=== PATIENT | male | born 1940 | race Caucasian/White ===

== ENCOUNTER → 2016-07-13 | Day surgery (SDC) | payer MEDICARE, OTHER ==
[~2016-07-13] MED LIST: Bupivacaine 0.25% 30 ML SDV INJECT ONE; methylPREDNISolone Acetate 80 MG/ML SDV IARTIC ONE
--- NOTE | 2016-07-14 09:31 | ANES ---
DATE OF PROCEDURE: 07/13/2016 REFERRING PHYSICIAN: Reginald Serna MD PROCEDURE PERFORMED: Epidural steroid injection at L2, L3 without fluoroscopy. Did discuss this with Dr. Serna this morning and decided not to use fluoroscopy since the machine was not working and the patient needed to get this done so he could get back on his Coumadin. REFERRAL DIAGNOSES: Left L2, L3 disk nerve root impingement. 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 No significant lumbar spinal canal narrowing. MRI was also discussed with the patient. I showed him a skeleton of a spine and the defects that he would have according to the MRI. BACK PAIN HISTORY: This is a 75-year-old male, who is of average build, 210 pounds, 5 feet, 11 inches. He is alert and oriented. He does not seem anxious or in acute pain this morning. He has had back pain for 60 years; the last year it has been progressing. He presently takes hydrocodone twice at night and 1 to 2 times during the day. He has been doing this for over a year. He has had no Aleve for 4 to 5 days. Today, he rates his pain scale at 4 when sitting, 6 to 7 when walking. Skin condition is clear. The patient has also been seeing a chiropractor for many years, has not seen one in 3 months. Chiropractor does help his pain. He has tried physical therapy, he has not tried that for over a year. He does not feel like the therapy helps. He does have hypertension, atrial fibrillation, history of aortic aneurysm repair, hypothyroidism and increase lipids. He has been bridging for the last week with Lovenox and he has been off his Coumadin. His INR yesterday was 1.2. His lungs are clear today. Heart rate is 70. Blood pressure is 118/62. The patient also reports that he has slight strokes for the last 8 to 10 years. He has not had one since last year. He says his left arm and leg will get numb for about 20 to 30 minutes at a time and then it resolves on its own. He said Kareem Grewal is aware of this condition. GENERAL ASSESSMENT: When observing the patient's gait today, the patient walked normal. He does say he favors his left side occasionally. He did use a cane approximately one and a half years ago, has not used one since and this was for a short period of time. When observing his posture, he was midline from head to trochanter. Lateral view was within normal limits. When I had the patient doing a standing trunk range of motion, side bending, rotation, flexion and extension were all normal. The patient was able to walk on his toes without pain. He was able to walk on his heels with slight pain in his back. He was able to walk on his heels with inversion with slight pain on his left side. When examining him in the sitting position, and I had the patient dorsiflex and invert while I forced into his plantar flexion and eversion, he was somewhat weak on the left 4/5, and he was normal on the right. When I held up his great toe and I had him dorsiflex his foot, he had some weakness on the left side, none on the right, 4/5 on the left. When I opposed dorsiflexion of the great toe, he had some weakness on the left, none on the right, 4/5 on the left. In a sitting position, I had the patient raise his thigh off the table, knee to ceiling, he was 4/5 on the left, 5/5 on the right without pain. When I placed one hand above his knee and provided some resistance to hand placed on the lower leg, as the patient raised his lower leg, he was 4/5 on the left and 5/5 on the right without pain. When I had the patient plantar flex and kamla against resistance, he was 4/5 on the left, 5/5 on the right without pain. In a supine position, I had him do the straight leg test, he was negative bilaterally. Contralateral straight leg raise was negative bilaterally. Rakan's test was positive on the right side, negative on the left side. Pelvic compression test was negative. In a lateral position, I had patient on his side and abduct while I had resistance on his leg, he was 4/5 on the left and 5/5 on the right. Prone position testing, when I had the patient prone, I had him bend his knee and then extend and lift his leg, while I had some resistance on it, he was 3/5 on the left with some pain, and is 5/5 on the right. Reverse straight leg test, he was having some pain on the left side. INFORMED CONSENT: I did go over risks and benefits of the procedure including anything from , paralysis, infection, bleeding, more commonly I told him he had a 2% to 3% risk of getting a headache that could last over a week. He read over the risks of the procedure and he did sign consent for an epidural steroid injection. DESCRIPTION OF PROCEDURE: The patient was brought back to the procedure room. A time-out was performed. We had the patient in a sitting position. I used Betadine prep x3. Sterile drape was applied. Xylocaine 1%, 5 mL was injected at L2, L3 interspace. A #17 gauge Tuohy was advanced to approximately 7 cm where there was a good loss of resistance. The needle was bevelled to the left. Depo-Medrol 80 mg with Marcaine 0.25% preservative-free 6 mL was injected after negative aspiration. Needle was withdrawn. No paraesthesia, no CSF noted, no blood noted in the needle. POST PROCEDURE CONDITION/RESULTS: The patient was then able to stand and walk to his room. The patient said his pain level was 0. DISCHARGE INSTRUCTIONS: After in his room, a pain dairy form was given to him explaining to keep track of his pain for the next days and weeks and month and to see if this continues to help him. He was advised he could have up to 4 injections per year at an interval of every 3 months if needed. I also discussed if needed more pain relief, if the SI joint will get worse, he could always have that injected at a facility nearby. I also mentioned that with the impingement of that nerve on the left side at L2, L3 that he might need to consult at some point with a neurosurgeon and he would have to talk to Dr. Serna about that. He is encouraged to call with any concerns of increase back pain, infection, or bleeding; he is to call the hospital and get a hold of us. The patient left in satisfactory condition. /[id number] /SOHAIL CHATTERJEE
== END ==
LOC: FB.SDS 07:51
PROVIDERS: ATTEND Nurse Anesthetist, Certified Registered
DX: M51.36 Other intervertebral disc degeneration, lumbar region (principal); I10 Essential (primary) hypertension; E03.9 Hypothyroidism, unspecified; E78.5 Hyperlipidemia, unspecified; Z88.0 Allergy status to penicillin; Z88.1 Allergy status to other antibiotic agents
CPT/HCPCS: 62322; J1040; 62311-QZ; J3490

== ENCOUNTER 2017-02-26 18:47 | Emergency (ER) | payer MEDICARE, OTHER ==
[2017-02-26] MEDS ORDERED: hydrOXYzine HCl 25 MG Tab PO ONE (20:37)
[2017-02-26] MEDS ORDERED: Clindamycin HCl 150 MG Cap PO ONE (20:37)
[2017-02-26 21:33] VITALS: BP 125/84
--- NOTE | 2017-03-06 10:39 | ER ---
DATE SEEN: 02/26/2017 TIME SEEN: The patient was seen at 1907 hours. HISTORY OF PRESENT ILLNESS: This is a 76-year-old man was bit by a wasp yesterday in his left forearm. The swelling in his hand increased since then. He has some mild pain and moderate itching. No shortness of breath. No difficulty breathing. No swelling in his throat. No abdominal pain, lightheadedness, dizziness, or diaphoresis. No chest pain or irregular heartbeat. PAST MEDICAL HISTORY: Endovascular stent placed in the aorta secondary to aortic aneurysm, hypertension, chronic atrial fibrillation, anticoagulation for atrial fibrillation, anteroseptal infarct. He had ablation x2 with TIAs- multiple TIAs, has had shoulder fracture, myocardial infarction, atrial fibrillation, type 2 diabetes and on metformin, and chronic tobacco use. ALLERGIES: He is allergic to NSAIDs, aspirin, Cipro, levofloxacin, penicillin. MEDICATIONS: 1. Digoxin. 2. Clobetasol. 3. Albuterol. 4. Hydrocodone. 5. Finasteride - for prostatism - bladder spasm. 6. Multivitamins. 7. Metoprolol succinate XL 50 mg daily. 8. Meclizine q.8 hours p.r.n. 12.5 mg. 9. Lisinopril/hydrochlorothiazide. 10.Levothyroxine 137 mcg daily. 11.Warfarin 5 mg Monday, Monday, Monday, , and Monday; 5 days different doses. 12.Triamcinolone. 13.Tamsulosin 0.4 at bedtime. 14.Omeprazole 25 mg daily. 15.Nitroglycerin p.r.n. 16.Warfarin 7.5 mg Monday and Monday. 17.Atorvastatin 40 mg daily. 18.Prednisone p.r.n. 19.Metformin 1000 mg b.i.d. 20.Requip, (ropinirole) 0.25 mg t.i.d. (restless legs). REVIEW OF SYSTEMS: The patient denies chest pain, shortness of breath, lightheadedness, difficulty breathing, irregular heartbeat. PHYSICAL EXAMINATION: VITAL SIGNS: Blood pressure not taken; heart rate 86, regular; respirations are not obtained; temperature 36.6 degrees centigrade. GENERAL: Alert man, looks somewhat tired, is overweight. He is not short of breath. HEENT: No jugular venous distention. Pharynx is without erythema. No angioedema. No erythema of the throat. NECK: Supple. No bruits in neck. LUNGS: Clear to auscultation without rales, rhonchi, or wheezes. HEART: S1, S2. No murmur. However, there is occasional irregular heartbeat. CABG noted and sternal incision noted. ABDOMEN: Nontender, no guarding, no abdominal discomfort. EXTREMITIES/SKIN: Left upper extremity from antecubital fossa to the mid distal forearm on the volar surface, mild erythema, mild increase in swelling. No edema. No excoriations. DIAGNOSIS: Post insect bite infection from the hymenoptera venom hyaluronidase enzymatic release of intracellular cytosol that is causing inflammation with capillary dilation, redness of the forearm, edema, and lymphedema. PLAN: Treat for potential infection. He is allergic to penicillin. Counseled to use clindamycin 300 mg t.i.d. for 7 days and also antihistamines coupled with Atarax 25 mg t.i.d. and Benadryl 25 to 50 mg q.i.d. p.r.n. if not resolved. The patient is dismissed. To follow up with doctor in a week or earlier if he is worse. /[id number] RISSA/SOHAIL CHATTERJEE
== END 2017-02-26 20:43 | disposition home or self-care (01) ==
LOC: FB.ED 18:47
DX: T63.481A Toxic effect of venom of other arthropod, accidental (unintentional), initial encounter (principal); L08.9 Local infection of the skin and subcutaneous tissue, unspecified; Z79.899 Other long term (current) drug therapy
CPT/HCPCS: 99281; A9270; 99283

== ENCOUNTER 2018-06-12 04:52 | Emergency (ER) | payer MEDICARE, OTHER ==
--- NOTE | 2018-06-12 05:14 | EDM.PDOC ---
ED HPI GENERAL MEDICAL PROBLEM - General Stated Complaint: WEAKNESS,CONFUSE Time Seen by Provider: 06/12/18 04:52 Source of Information: Reports: Patient, Family History Limitations: Reports: Altered Mental Status - History of Present Illness INITIAL COMMENTS - FREE TEXT/NARRATIVE: 77 y.o.w.m smoker with multiple medical problems including H/O CVAs, CAD and Colon CA came to the ed with his due to short memory loss and weakness which started 4 days ago. Pt is on Coumadin. Pt denies CP, Has left sided weakness to CVAs and Right shoulder pain from previous injuries. No N/V/D no diaphoresis or any other acute medical issues. BP 134/42 RR 20 Pulse ox 94 % on RA Temp 37.3 Pulse 56 Onset Date: 06/09/18 Onset Time: 08:00 Duration: Day(s):, Getting Worse Location: Reports: Head, Generalized Severity: Moderate Improves with: Reports: Rest Worsens with: Reports: Movement Context: Reports: Other (H/O CVAs) Associated Symptoms: Reports: Confusion, Cough, Diaphoresis, Headaches, Malaise , Weakness right shoulder Pain Score (Numeric/FACES): 4 - Related Data Allergies Allergy/AdvReac Type Severity Reaction Status Date / Time ciprofloxacin Allergy nausea,vomi Verified 06/12/18 05:23 ting levofloxacin Allergy unknown Verified 06/12/18 05:23 Penicillins Allergy Rash Verified 06/12/18 05:23 Home Meds: Home Meds Warfarin [Coumadin] 5 mg PO MO 03/10/13 [History] Warfarin [Coumadin] 7.5 mg PO SUTUWETHFRSA 03/10/13 [History] Hydrocodone/Acetaminophen [Hydrocodon-Acetaminoph 7.5-325] 0.5 tab PO Q4H [History] Levothyroxine [Levothroid] 137 mcg PO ACBREAKFAST 04/01/15 [History] Meclizine HCl 12.5 - 25 mg PO Q8H PRN 04/01/15 [History] Multivitamin [Multivitamins] 1 each PO DAILY 04/01/15 [History] Nitroglycerin [Nitrostat] 0.4 mg SL ASDIRECTED PRN 04/01/15 [History] Omeprazole 20 mg PO DAILY 04/01/15 [History] Tamsulosin [Flomax] 0.4 mg PO BID 04/01/15 [History] Triamcinolone Acetonide [Triamcinolone Acetonide 0.1% Crm] 1 applic TOP BID PRN 04/01/15 [History] Albuterol [Proventil HFA] 2 puff PO Q4H PRN 07/12/16 [History] Finasteride [Proscar] 5 mg PO BEDTIME 07/12/16 [History] Lisinopril/Hydrochlorothiazide [Lisinopril-Hctz 10-12.5 mg Tab] 1 tab PO DAILY 07/12/16 [History] Metoprolol Succinate [Toprol XL] 100 mg PO DAILY 07/12/16 [History] atorvaSTATin [Lipitor] 40 mg PO BEDTIME 07/12/16 [History] metFORMIN [Glucophage] 1,000 mg PO BIDMEALS 07/12/16 [History] rOPINIRole HCl [Requip] 0.25 mg PO TID PRN 07/12/16 [History] Digoxin 0.25 mg PO DAILY 04/08/18 [History] Gabapentin [Neurontin] 600 mg PO TID 04/08/18 [History] Glimepiride [Amaryl] 2 mg PO DAILY 04/08/18 [History] Ibuprofen [Advil Migraine] 400 mg PO ASDIRECTED PRN 06/12/18 [History] Nitrofurantoin Monohyd/M-Cryst [Macrobid 100 mg Capsule] 100 mg PO BID 06/12/18 [History] Past Medical History - Past Health History Medical/Surgical History: Denies Medical/Surgical History Cardiovascular History: Reports: Afib, CAD, Hypertension, Stents Gastrointestinal History: Reports: Other (See Below) Other Gastrointestinal History: Colon CA Genitourinary History: Reports: Prostate Disorder Musculoskeletal History: Reports: Arthritis, Fracture, Neck Pain, Chronic Other Musculoskeletal History: SHOULDER FRACTURE Neurological History: Reports: Concussion, CVA, Migraines, Neuropathy, Diabetic , Vertigo Other Neuro History: 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, restless legs, Psychiatric History: Reports: Anxiety Endocrine/Metabolic History: Reports: Diabetes, Type II, Hypothyroidism, Obesity /BMI 30+ Hematologic History: Reports: Blood Transfusion(s) Oncologic (Cancer) History: Reports: Colon Dermatologic History: Reports: Other (See Below) Other Dermatologic History: hx rash - Infectious Disease History Infectious Disease History: Reports: Chicken Pox, Measles, Mumps, Pertussis ( Whooping Cough), Rheumatic Fever, Other (See Below) Other Infectious Disease History: yellow jaundice - Past Surgical History Head Surgeries/Procedures: Reports: None Cardiovascular Surgical History: Reports: Carotid Stents Other Cardiovascular Surgeries/Procedures: 2 stents placed GI Surgical History: Reports: Appendectomy, Colonoscopy, Hernia Repair/Other Male Surgical History: Reports: Cystectomy Neurological Surgical History: Reports: None Musculoskeletal Surgical History: Reports: Shoulder Surgery Other Musculoskeletal Surgeries/Procedures:: R shoulder x2 Oncologic Surgical History: Reports: None, Other (See Below) Other Oncologic Surgeries/Procedures: polups removed Dermatological Surgical History: Reports: None Social & Family History - Family History Family Medical History: Noncontributory - Caffeine Use Caffeine Use: Reports: Coffee ED ROS GENERAL - Review of Systems Review Of Systems: Unable To Obtain ED EXAM, NEURO - Physical Exam Exam: See Below Exam Limited By: Physical Impairment General Appearance: Alert, Mild Distress, Moderate Distress, Obese Eye Exam: Bilateral Eye: Normal Inspection Ears: Normal External Exam Nose: Other (dry mucosal membrane) Throat/Mouth: Normal Lips, Normal Voice, No Airway Compromise, Other (dry mucosal membrane, poor dentition) Head Exam: Atraumatic, Normocephalic Neck: Normal Inspection, Supple, Non-Tender, Full Range of Motion Respiratory/Chest: No Respiratory Distress, Normal Breath Sounds (poor insp effort) Cardiovascular: Normal Peripheral Pulses, Regular Rate, Rhythm, No Edema GI/Abdominal: Normal Bowel Sounds, Soft, Non-Tender, No Organomegaly, No Abnormal Bruit, No Mass, Pelvis Stable (Male) Exam: Deferred Rectal (Males) Exam: Deferred Neurological: Alert, Normal Mood/Affect, CN II-XII Intact, Abnormal Gait DTR: 2+: Bicep (L) Back Exam: Normal Inspection, Full Range of Motion Extremities: Normal Inspection, Normal Range of Motion, Non-Tender, Normal Capillary Refill Psychiatric: Normal Affect, Normal Mood Skin Exam: Warm, Dry, Intact, Normal Color, No Rash EKG INTERPRETATION EKG Date: 06/12/18 Time: 05:00 Rhythm: A-Fib Rate (Beats/Min): 59 [place]: Normal P-Wave: Absent QRS: Normal ST-T: Normal QT: Normal Comparison: NA - No Prior EKG Course - Vital Signs Text/Narrative:: 77 y.o.w.m smoker with multiple medical problems including H/O CVAs, CAD and Colon CA came to the ed with his due to short memory loss and weakness which started 4 days ago. Pt is on Coumadin. Pt denies CP, Has left sided weakness to CVAs and Right shoulder pain from previous injuries. No N/V/D no diaphoresis or any other acute medical issues. BP 134/42 RR 20 Pulse ox 94 % on RA Temp 37.3 Pulse 56 PE: Weak appearing 77 y.o.w.m with short memory loss, which started 4 days ago, weakness, a fib with SVR and a run of V Tach while here in the ED Imaging: CXR: right hilum enlarged, official report is pending. CT head: Results are pending Labs: Troponin 0.122 Mg 1.4 BNP 5809 GFR 39 Cr 1.7 BUN 21 K 4.6 Na 135 Lactic acid 1.3 INR 2.25 (on Coumadin) Impression: NSTEMI, A -fib wit SVR, Run of VT (2 sec), Low MG, Colon CA, CAD with stent placements, CVAs x 6, H/O Vertigo, Typ 2 diabetes, Tx: ASA, Mg, NS, Heparin drip 6.20 am Consultation:Dr. Banuelos, Hospitalist, [facility]: Accepted the pt for transfer, admission and further care. No procainamide at this time. Reexam: Improved Plan: Transfer to [facility] by EMS, was kept informed and agreed with transfer. Pt was signed out to Dr. Dennison at 7.30 am due to shift change. Last Recorded V/S: Last Vital Signs Temp 37.3 C 06/12/18 04:55 Pulse 51 L 06/12/18 06:43 Resp 18 06/12/18 06:43 BP 147/59 H 06/12/18 06:43 Pulse Ox 99 06/12/18 06:43 - Orders/Labs/Meds Labs: Laboratory Tests 06/12/18 06/12/18 06/12/18 Range/Units 05:05 05:05 05:05 WBC 7.7 (4.5-12.0) X10-3/uL RBC 3.69 L (4.30-5.75) x10(6)uL Hgb 11.7 (11.5-15.5) g/dL Hct 34.9 (30.0-51.3) % MCV 94.5 (80-96) fL MCH 31.6 (27.7-33.6) pg MCHC 33.5 (32.2-35.4) g/dL RDW 13.6 (11.5-15.5) % Plt Count 131 (125-369) X10(3)uL MPV 9.5 (7.4-10.4) fL Add Manual Diff Yes Neutrophils % (Manual) 57 (46-82) % Lymphocytes % (Manual) 33 (13-37) % Monocytes % (Manual) 8 (4-12) % Eosinophils % (Manual) 2 (0-5) % PT 24.2 H (8.7-11.1) INR 2.51 H (0.89-1.13) Sodium 135 (135-145) mmol/L Potassium 4.3 (3.5-5.3) mmol/L Chloride 101 (100-110) mmol/L Carbon Dioxide 26 (21-32) mmol/L BUN 21 H (7-18) mg/dL Creatinine 1.7 H (0.70-1.30) mg/dL Est Cr Clr Drug Dosing TNP Estimated GFR (MDRD) 39 L (>60) BUN/Creatinine Ratio 12.4 (9-20) Glucose 81 (80-116) mg/dL Lactic Acid (0.4-2.2) mmol/L Calcium 8.7 (8.6-10.2) mg/dL Magnesium (1.8-2.5) mg/dL Troponin I (<0.017-0.056) ng/mL NT-Pro-B Natriuret Pep (<=450) pg/mL Urine Color (YELLOW) Urine Appearance (CLEAR) Urine pH (5.0-6.5) Ur Specific Gustine (1.010-1.025) Urine Protein (NEGATIVE) mg/dL Urine Glucose (UA) (NEGATIVE) mg/dL Urine Ketones (NEGATIVE) mg/dL Urine Occult Blood (NEGATIVE) Urine Nitrite (NEGATIVE) Urine Bilirubin (NEGATIVE) Urine Urobilinogen (NEGATIVE) mg/dL Ur Leukocyte Esterase (NEGATIVE) Urine WBC (0) Ur Squamous Epith Cells (NS,R,O) Urine Bacteria (NS) 06/12/18 06/12/18 06/12/18 Range/Units 05:05 05:05 05:05 WBC (4.5-12.0) X10-3/uL RBC (4.30-5.75) x10(6)uL Hgb (11.5-15.5) g/dL Hct (30.0-51.3) % MCV (80-96) fL MCH (27.7-33.6) pg MCHC (32.2-35.4) g/dL RDW (11.5-15.5) % Plt Count (125-369) X10(3)uL MPV (7.4-10.4) fL Add Manual Diff Neutrophils % (Manual) (46-82) % Lymphocytes % (Manual) (13-37) % Monocytes % (Manual) (4-12) % Eosinophils % (Manual) (0-5) % PT (8.7-11.1) INR (0.89-1.13) Sodium (135-145) mmol/L Potassium (3.5-5.3) mmol/L Chloride (100-110) mmol/L Carbon Dioxide (21-32) mmol/L BUN (7-18) mg/dL Creatinine (0.70-1.30) mg/dL Est Cr Clr Drug Dosing Estimated GFR (MDRD) (>60) BUN/Creatinine Ratio (9-20) Glucose (80-116) mg/dL Lactic Acid 1.3 (0.4-2.2) mmol/L Calcium (8.6-10.2) mg/dL Magnesium 1.4 L (1.8-2.5) mg/dL Troponin I 0.122 H* (<0.017-0.056) ng/mL NT-Pro-B Natriuret Pep 5808 H* (<=450) pg/mL Urine Color (YELLOW) Urine Appearance (CLEAR) Urine pH (5.0-6.5) Ur Specific Gust[place] (1.010-1.025) Urine Protein (NEGATIVE) mg/dL Urine Glucose (UA) (NEGATIVE) mg/dL Urine Ketones (NEGATIVE) mg/dL Urine Occult Blood (NEGATIVE) Urine Nitrite (NEGATIVE) Urine Bilirubin (NEGATIVE) Urine Urobilinogen (NEGATIVE) mg/dL Ur Leukocyte Esterase (NEGATIVE) Urine WBC (0) Ur Squamous Epith Cells (NS,R,O) Urine Bacteria (NS) 06/12/18 06/12/18 Range/Units 08:12 10:15 WBC (4.5-12.0) X10-3/uL RBC (4.30-5.75) x10(6)uL Hgb (11.5-15.5) g/dL Hct (30.0-51.3) % MCV (80-96) fL MCH (27.7-33.6) pg MCHC (32.2-35.4) g/dL RDW (11.5-15.5) % Plt Count (125-369) X10(3)uL MPV (7.4-10.4) fL Add Manual Diff Neutrophils % (Manual) (46-82) % Lymphocytes % (Manual) (13-37) % Monocytes % (Manual) (4-12) % Eosinophils % (Manual) (0-5) % PT (8.7-11.1) INR (0.89-1.13) Sodium (135-145) mmol/L Potassium (3.5-5.3) mmol/L Chloride (100-110) mmol/L Carbon Dioxide (21-32) mmol/L BUN (7-18) mg/dL Creatinine (0.70-1.30) mg/dL Est Cr Clr Drug Dosing Estimated GFR (MDRD) (>60) BUN/Creatinine Ratio (9-20) Glucose (80-116) mg/dL Lactic Acid (0.4-2.2) mmol/L Calcium (8.6-10.2) mg/dL Magnesium (1.8-2.5) mg/dL Troponin I 0.112 H* (<0.017-0.056) ng/mL NT-Pro-B Natriuret Pep (<=450) pg/mL Urine Color Yellow (YELLOW) Urine Appearance Clear (CLEAR) Urine pH 6.0 (5.0-6.5) Ur Specific [place] 1.015 (1.010-1.025) Urine Protein Negative (NEGATIVE) mg/dL Urine Glucose (UA) Normal (NEGATIVE) mg/dL Urine Ketones Negative (NEGATIVE) mg/dL Urine Occult Blood Negative (NEGATIVE) Urine Nitrite Negative (NEGATIVE) Urine Bilirubin Negative (NEGATIVE) Urine Urobilinogen Normal (NEGATIVE) mg/dL Ur Leukocyte Esterase Negative (NEGATIVE) Urine WBC 0-5 (0) Ur Squamous Epith Cells Occasional (NS,R,O) Urine Bacteria Few H (NS) Meds: Medications Discontinued Medications Generic Name Dose Route Start Last Admin Trade Name Freq PRN Reason Stop Dose Admin Aspirin 324 mg 06/12/18 07:39 06/12/18 07:58 Aspirin PO 06/12/18 07:40 324 mg ONETIME ONE Administration Sodium Chloride 1,000 mls @ 125 mls/hr 06/12/18 05:15 06/12/18 05:26 Normal Saline IV 125 mls/hr ASDIRECTED RYLIE Administration Magnesium Sulfate 2 gm/ Premix 50 mls @ 150 mls/hr 06/12/18 06:27 06/12/18 06 :36 IV 06/12/18 06:46 150 mls/hr ONETIME ONE Administration Heparin Sodium/Sodium Chloride 25,000 units in 500 mls @ 19.974 mls/hr 07:45 06/12/18 07:59 Heparin 25,000 Units In 1/2 Ns 500 Ml IV 10.1 units/kg/hr TITRATE RYLIE 19.974 mls/hr Administration Protocol 10.1 UNITS/KG/HR Nicotine 14 mg 06/12/18 10:42 06/12/18 11:01 Habitrol TRDERM 06/12/18 10:43 14 mg ONETIME ONE Administration Sodium Chloride 10 ml 06/12/18 07:55 06/12/18 07:56 Saline Flush FLUSH 10 ml ASDIRECTED PRN Administration Keep Vein Open Departure - Departure Time of Disposition: 20:00 Disposition: DC/Tfer to Acute Hospital 02 Condition: Fair Clinical Impression: NSTEMI (non-ST elevated myocardial infarction) - Discharge Information Referrals: PCP,Unknown [Primary Care Provider] - Forms: ED Department Discharge
[2018-06-12] MEDS ORDERED: Sodium Chloride 0.9% 1,000 ML IV SCH (05:15)
[2018-06-12] MEDS ORDERED: Magnesium Sulfate/Water 2 GM in Premix Bag 1 BAG IV ONE (06:27)
[2018-06-12 06:48] VITALS: BP 147/59
[2018-06-12] MEDS ORDERED: Aspirin 81 MG Tab.Chew PO ONE (07:39)
[2018-06-12] MEDS ORDERED: Heparin Sodium/0.45% NaCl 25,000 UNITS/500 ML BAG IV SCH (07:45)
[2018-06-12] MEDS ORDERED: Sodium Chloride 0.9% 10 ML Syringe FLUSH PRN (07:55)
[2018-06-12] MEDS ORDERED: Nicotine 14 MG/24 Hr Patch TRDERM ONE (10:42)
== END 2018-06-12 11:37 ==
LOC: FB.ED 04:52
DX: I21.4 Non-ST elevation (NSTEMI) myocardial infarction (principal); I48.91 Unspecified atrial fibrillation; C18.9 Malignant neoplasm of colon, unspecified; I25.10 Atherosclerotic heart disease of native coronary artery without angina pectoris; I10 Essential (primary) hypertension; E11.40 Type 2 diabetes mellitus with diabetic neuropathy, unspecified; E66.9 Obesity, unspecified; Z88.1 Allergy status to other antibiotic agents; Z88.0 Allergy status to penicillin; Z79.899 Other long term (current) drug therapy; Z86.73 Personal history of transient ischemic attack (TIA), and cerebral infarction without residual deficits
CPT/HCPCS: 36415; 70450; 71045; 80048; 81001; 83605; 83735; 83880; 84484; 85025; 85610; 93005; 96365; 99285; A9270-GY; J1644; J3475; J7030

== ENCOUNTER 2019-05-23 17:23 | Emergency (ER) | payer MEDICARE, OTHER ==
[2019-05-23] MEDS ORDERED: HYDROmorphone 2 MG/ML SDV IM ONE (18:01)
--- NOTE | 2019-05-23 18:07 | EDM.PDOC ---
ED HPI GENERAL MEDICAL PROBLEM - General Chief Complaint: Back Pain or Injury Stated Complaint: BACK PAIN AFTER FALLING ON ICE STEPS Time Seen by Provider: 05/23/19 17:50 Source of Information: Reports: Patient, Family, Old Records History Limitations: Reports: No Limitations - History of Present Illness INITIAL COMMENTS - FREE TEXT/NARRATIVE: Milton comes into [facility] ED this evening for examination of his lower back following a backward fall at 8 am this morning. He slipped on the ice and fell onto lower back. There was no LOC. 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 There is acute on chronic pain, nonradiating, and no change in bowel or bladder function. He has been taking Hydrocodone 7.5 mg tabs x 2 for sxs relief. He is on Coumadin for chronic AF. - Related Data Allergies Allergy/AdvReac Type Severity Reaction Status Date / Time ciprofloxacin Allergy nausea,vomi Verified 06/12/18 05:23 ting levofloxacin Allergy unknown Verified 06/12/18 05:23 Penicillins Allergy Rash Verified 06/12/18 05:23 Home Meds: Home Meds Warfarin [Coumadin] 5 mg PO MO 03/10/13 [History] Warfarin [Coumadin] 7.5 mg PO SUTUWETHFRSA 03/10/13 [History] Hydrocodone/Acetaminophen [Hydrocodon-Acetaminoph 7.5-325] 0.5 tab PO Q4H [History] Levothyroxine [Levothroid] 137 mcg PO ACBREAKFAST 04/01/15 [History] Meclizine HCl 12.5 - 25 mg PO Q8H PRN 04/01/15 [History] Multivitamin [Multivitamins] 1 each PO DAILY 04/01/15 [History] Nitroglycerin [Nitrostat] 0.4 mg SL ASDIRECTED PRN 04/01/15 [History] Omeprazole 20 mg PO DAILY 04/01/15 [History] Tamsulosin [Flomax] 0.4 mg PO BID 04/01/15 [History] Triamcinolone Acetonide [Triamcinolone Acetonide 0.1% Crm] 1 applic TOP BID PRN 04/01/15 [History] Albuterol [Proventil HFA] 2 puff PO Q4H PRN 07/12/16 [History] Finasteride [Proscar] 5 mg PO BEDTIME 07/12/16 [History] Lisinopril/Hydrochlorothiazide [Lisinopril-Hctz 10-12.5 mg Tab] 1 tab PO DAILY 07/12/16 [History] Metoprolol Succinate [Toprol XL] 100 mg PO DAILY 07/12/16 [History] atorvaSTATin [Lipitor] 40 mg PO BEDTIME 07/12/16 [History] metFORMIN [Glucophage] 1,000 mg PO BIDMEALS 07/12/16 [History] rOPINIRole HCl [Requip] 0.25 mg PO TID PRN 07/12/16 [History] Digoxin 0.25 mg PO DAILY 04/08/18 [History] Gabapentin [Neurontin] 600 mg PO TID 04/08/18 [History] Glimepiride [Amaryl] 2 mg PO DAILY 04/08/18 [History] Ibuprofen [Advil Migraine] 400 mg PO ASDIRECTED PRN 06/12/18 [History] Nitrofurantoin Monohyd/M-Cryst [Macrobid 100 mg Capsule] 100 mg PO BID 06/12/18 [History] Past Medical History - Past Health History Medical/Surgical History: Denies Medical/Surgical History Cardiovascular History: Reports: Afib, CAD, Hypertension, Stents Respiratory History: Reports: Other (See Below) Other Respiratory History: chronic smoker since 8 years old; 1 pack or less / day Gastrointestinal History: Reports: Other (See Below) Other Gastrointestinal History: Colon CA Genitourinary History: Reports: Prostate Disorder Musculoskeletal History: Reports: Arthritis, Fracture, Neck Pain, Chronic Other Musculoskeletal History: SHOULDER FRACTURE Neurological History: Reports: Concussion, CVA, Migraines, Neuropathy, Diabetic , Vertigo Other Neuro History: 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, restless legs, Psychiatric History: Reports: Anxiety Endocrine/Metabolic History: Reports: Diabetes, Type II, Hypothyroidism, Obesity /BMI 30+ Hematologic History: Reports: Blood Transfusion(s) Oncologic (Cancer) History: Reports: Colon Dermatologic History: Reports: Other (See Below) Other Dermatologic History: hx rash - Infectious Disease History Infectious Disease History: Reports: Chicken Pox, Measles, Mumps, Pertussis ( Whooping Cough), Rheumatic Fever, Other (See Below) Other Infectious Disease History: yellow jaundice - Past Surgical History Head Surgeries/Procedures: Reports: None Cardiovascular Surgical History: Reports: Carotid Stents Other Cardiovascular Surgeries/Procedures: 2 stents placed GI Surgical History: Reports: Appendectomy, Colonoscopy, Hernia Repair/Other Male Surgical History: Reports: Cystectomy Neurological Surgical History: Reports: None Musculoskeletal Surgical History: Reports: Shoulder Surgery Other Musculoskeletal Surgeries/Procedures:: R shoulder x2 Oncologic Surgical History: Reports: None, Other (See Below) Other Oncologic Surgeries/Procedures: polups removed Dermatological Surgical History: Reports: None Social & Family History - Family History Family Medical History: Noncontributory - Caffeine Use Caffeine Use: Reports: Coffee Other Caffeine Use: seldom ED ROS GENERAL - Review of Systems Review Of Systems: Comprehensive ROS is negative, except as noted in HPI. ED EXAM,LOWER BACK PAIN/INJURY - Physical Exam Exam: See Below Exam Limited By: No Limitations General Appearance: Alert, WD/WN, Anxious, Moderate Distress, Obese Head: Atraumatic, Normocephalic Neck: Normal Inspection, Supple, Non-Tender Respiratory/Chest: No Respiratory Distress, Lungs Clear, No Accessory Muscle Use , Chest Non-Tender Cardiovascular: No Murmur, Irregularly Irregular GI/Abdominal: Normal Bowel Sounds, Soft, Non-Tender, No Organomegaly, No Distention, No Mass (Male) Exam: Deferred Rectal (Males) Exam: Deferred Back Exam: Vertebral Tenderness (L4-5, L5-S1; visible ecchymoses overlying SI joints R>L) Extremities: Limited Range of Motion, Other (visible ecchymoses involving L upper arm (old)) Neurological: Alert, CN II-XII Intact Psychiatric: Normal Affect, Anxious Skin Exam: Warm, Dry, Intact, No Rash, Ecchymosis Lymphatic: No Adenopathy Course - Vital Signs Text/Narrative:: Milton reported considerable improvement in back pain after administration of Dilaudid 2 mg IM before radiographic study. Findings note disc space narrowing at L4-5, no compression fx, and numerous spurs. He was clinically improved at time of discharge. - Orders/Labs/Meds Orders: Active Orders 24 hr Category Date Time Status Lumbar Spine 2 or 3V [CR] Stat Exams 05/23/19 18:00 Taken Meds: Medications Discontinued Medications Generic Name Dose Route Start Last Admin Trade Name Freq PRN Reason Stop Dose Admin Hydromorphone HCl 2 mg 05/23/19 18:05/23/19 18:09 Dilaudid IM 05/23/19 18:02 2 mg ONETIME ONE Administration Departure - Departure Time of Disposition: 19:06 Disposition: Home, Self-Care 01 Condition: Fair Clinical Impression: Contusion of lower back Qualifiers: Encounter type: initial encounter Qualified Code(s): S30.0XXA - Contusion of lower back and pelvis, initial encounter - Discharge Information *PRESCRIPTION DRUG MONITORING PROGRAM REVIEWED*: Not Applicable *COPY OF PRESCRIPTION DRUG MONITORING REPORT IN PATIENT RONNY: Not Applicable Referrals: Rakan Prather MD [Primary Care Provider] - Forms: ED Department Discharge Sepsis Event Note - Focused Exam Date Exam was Performed: 05/23/19 Time Exam was Performed: 19:05 - Problem List & Annotations (1) Contusion of lower back SNOMED Code(s): 791910587 Code(s): S30.0XXA - CONTUSION OF LOWER BACK AND PELVIS, INITIAL ENCOUNTER Status: Acute Current Visit: Yes Annotation/Comment:: I suggested rest, ice packs, gentle stretches, and use of Hydrocodone 7.5/325 mg for breakthrough pain. Qualifiers: Encounter type: initial encounter Qualified Code(s): S30.0XXA - Contusion of lower back and pelvis, initial encounter - Problem List Review Problem List Initiated/Reviewed/Updated: Yes - My Orders Last 24 Hours: My Active Orders 05/23/19 18:00 Lumbar Spine 2 or 3V [CR] Stat - Assessment/Plan Last 24 Hours: My Active Orders 05/23/19 18:00 Lumbar Spine 2 or 3V [CR] Stat Plan: Follow up with PCP if sxs persist.
[2019-05-23 20:28] VITALS: BP 123/99; PULSE 104
== END 2019-05-23 20:00 | disposition home or self-care (01) ==
LOC: FB.ED 17:23
DX: S30.0XXA Contusion of lower back and pelvis, initial encounter (principal); I10 Essential (primary) hypertension; I48.91 Unspecified atrial fibrillation; E11.9 Type 2 diabetes mellitus without complications; E03.9 Hypothyroidism, unspecified; E66.9 Obesity, unspecified; Z79.01 Long term (current) use of anticoagulants; Z88.1 Allergy status to other antibiotic agents; W19.XXXA Unspecified fall, initial encounter
CPT/HCPCS: 72100; 96372; 99283; J1170

== ENCOUNTER 2022-02-09 16:48 | Emergency (ER) | payer MEDICARE ==
[2022-02-09 22:06] VITALS: BP 141/81; PULSE 83
== END 2022-02-09 19:16 ==
LOC: FB.ED 16:48
DX: J93.9 Pneumothorax, unspecified (principal); I11.0 Hypertensive heart disease with heart failure; I50.9 Heart failure, unspecified; I48.91 Unspecified atrial fibrillation; I25.10 Atherosclerotic heart disease of native coronary artery without angina pectoris; E11.9 Type 2 diabetes mellitus without complications; E03.9 Hypothyroidism, unspecified; E66.9 Obesity, unspecified; Z95.5 Presence of coronary angioplasty implant and graft; Z88.1 Allergy status to other antibiotic agents; Z88.0 Allergy status to penicillin; Z79.01 Long term (current) use of anticoagulants; Z79.899 Other long term (current) drug therapy; Z79.84 Long term (current) use of oral hypoglycemic drugs; Z68.32 Body mass index [BMI] 32.0-32.9, adult
CPT/HCPCS: 36415; 71046; 83880; 84484; 85379; 85610; 85730; 99285

== ENCOUNTER 2022-08-16 08:14 | Day surgery (SDC) | payer MEDICARE ==
[~2022-08-16 08:14] MED LIST changes: -Bupivacaine 0.25% 30 ML SDV INJECT ONE; +Lactated Ringers 1,000 ML IV SCH; +Sodium Chloride 0.9% 10 ML Syringe FLUSH PRN; -methylPREDNISolone Acetate 80 MG/ML SDV IARTIC ONE
[2022-08-16] MEDS ORDERED: Midazolam 1 MG/ML 2 ML SDV IV ONE (08:15)
[2022-08-16] MEDS ORDERED: fentaNYL 100 MCG/2 ML SDV IV ONE (08:15)
[2022-08-16] MEDS ORDERED: Sodium Chloride 0.9% 10 ML Syringe FLUSH PRN (10:00)
[2022-08-16] MEDS ORDERED: Lactated Ringers 1,000 ML IV SCH (10:00)
[2022-08-16] MEDS ORDERED: acetaZOLAMIDE 500 MG Cap.ER PO ONE (10:00)
[2022-08-16 11:05] VITALS: BP 108/59; PULSE 68
== END 2022-08-16 11:15 | disposition home or self-care (01) ==
LOC: FB.SDS 08:14
PROVIDERS: ATTEND Ophthalmology
DX: E11.36 Type 2 diabetes mellitus with diabetic cataract (principal); H25.813 Combined forms of age-related cataract, bilateral; H35.3131 Nonexudative age-related macular degeneration, bilateral, early dry stage; H25.13 Age-related nuclear cataract, bilateral; H16.103 Unspecified superficial keratitis, bilateral; H18.413 Arcus senilis, bilateral; I12.9 Hypertensive chronic kidney disease with stage 1 through stage 4 chronic kidney disease, or unspecified chronic kidney disease; N18.31 Chronic kidney disease, stage 3a; E11.41 Type 2 diabetes mellitus with diabetic mononeuropathy; E11.22 Type 2 diabetes mellitus with diabetic chronic kidney disease; E11.69 Type 2 diabetes mellitus with other specified complication; E11.42 Type 2 diabetes mellitus with diabetic polyneuropathy; N40.1 Benign prostatic hyperplasia with lower urinary tract symptoms; R35.0 Frequency of micturition; D63.1 Anemia in chronic kidney disease; E03.9 Hypothyroidism, unspecified; N17.9 Acute kidney failure, unspecified; J44.9 Chronic obstructive pulmonary disease, unspecified; E78.5 Hyperlipidemia, unspecified; I73.9 Peripheral vascular disease, unspecified; E66.9 Obesity, unspecified; I25.2 Old myocardial infarction; F17.210 Nicotine dependence, cigarettes, uncomplicated; Z68.30 Body mass index [BMI] 30.0-30.9, adult; Z79.899 Other long term (current) drug therapy; Z79.01 Long term (current) use of anticoagulants; Z79.84 Long term (current) use of oral hypoglycemic drugs; Z88.0 Allergy status to penicillin; Z88.2 Allergy status to sulfonamides; Z88.1 Allergy status to other antibiotic agents; Z88.8 Allergy status to other drugs, medicaments and biological substances; Z79.890 Hormone replacement therapy; Z98.890 Other specified postprocedural states
CPT/HCPCS: 00142; 66984; 82947; A9270; J2250; J3010; J7120; V2632

== ENCOUNTER 2023-06-13 14:09 | Emergency (ER) | payer MEDICARE ==
[2023-06-13 14:32] VITALS: BP 106/73; PULSE 72
[2023-06-13 14:50] LABS: BASOPHILS PERCENT AUTO 0.6 % (0.3-3.8); EOSINOPHILS ABSOLUTE AUTO 0.4 x10-3/uL (0.0-0.6); EOSINOPHILS PERCENT AUTO 5.9 % (0.1-6.8); HEMATOCRIT 33.1 % (38.3-50.1); HEMOGLOBIN 10.9 g/dL (12.9-17.7); LYMPHOCYTES ABSOLUTE AUTO 1.9 x10-3/uL (0.5-4.5); LYMPHOCYTES PERCENT AUTO 27.3 % (15.8-45.3); MEAN CORPUSCULAR HEMOGLOBIN 31.1 pg (27.0-33.3); MEAN CORPUSCULAR HGB CONC 32.9 g/dL (28.7-35.3); MEAN CORPUSCULAR VOLUME 94.4 fL (80.8-98.7); MEAN PLATELET VOLUME 9.4 fL (6.7-11.0); MONOCYTES ABSOLUTE AUTO 0.7 x10-3/uL (0.0-1.2); MONOCYTES PERCENT AUTO 10.1 % (5.5-15.2); NEUTROPHILS ABSOLUTE AUTO 3.8 x10-3/uL (1.7-6.9); NEUTROPHILS PERCENT AUTO 56.1 % (40.3-71.8); PLATELET COUNT,PLT 170 x10(3)uL (117-477); RED CELL DISTRIBUTION WIDTH 14.6 % (12.4-15.0); WHITE BLOOD CELL COUNT,WBC 6.8 x10-3/uL (3.2-10.1)
[2023-06-13 14:56] LABS: INR 3.12 (1.00-1.24); PROTHROMBIN TIME 29.5 sec (9.0-11.1)
[2023-06-13 14:59] LABS: A/G RATIO 0.8; ALANINE AMINOTRANSFERASE,ALT 34 U/L (12-36); ALBUMIN 3.5 g/dL (3.2-4.6); ALKALINE PHOSPHATASE 122 IU/L (56-112); ASPARTATE AMNIOTRANSFERASE,AST 33 IU/L (5-25); BILIRUBIN TOTAL 0.3 mg/dL (0.1-1.3); BLOOD UREA NITROGEN,BUN 71 mg/dL (7-18); BUN/CREATININE RATIO 13.1 (9-20); CALCIUM 10.6 mg/dL (8.6-10.2); CARBON DIOXIDE,CO2 25 mmol/L (21-32); CHLORIDE,CL 104 mmol/L (100-110); EST CRCL DRUG DOSING (CG) 11.04 mL/min; ESTIMATED GFR 10 mL/min (>60); GLUCOSE RANDOM 95 mg/dL (80-116); POTASSIUM,K 5.6 mmol/L (3.5-5.3); PROTEIN TOTAL,TP 7.9 g/dL (6.0-8.0); SODIUM,NA 136 mmol/L (135-145)
[2023-06-13 15:10] LABS: CREATININE 5.4 mg/dL (0.70-1.30)
[2023-06-13 15:22] LABS: INFLUENZA A NAA NEGATIVE (NEGATIVE); INFLUENZA B NAA NEGATIVE (NEGATIVE)
[2023-06-13 15:25] LABS: CORONAVIRUS COVID-19 NAA NEGATIVE (NEGATIVE)
[2023-06-13] MEDS ORDERED: Sodium Chloride 0.9% 1,000 ML IV SCH (16:00)
[2023-06-13 16:54] LABS: BILIRUBIN,URINE NEGATIVE (NEGATIVE); GLUCOSE,URINE NORMAL (NORMAL); KETONES,URINE NEGATIVE (NEGATIVE); LEUKOCYTE ESTERASE,URINE LARGE (NEGATIVE); NITRITE,URINE NEGATIVE (NEGATIVE); OCCULT BLOOD,URINE MODERATE (NEGATIVE); PROTEIN,URINE TRACE mg/dL (NEGATIVE); UROBILINOGEN,URINE NORMAL (NEGATIVE)
[2023-06-13 16:59] LABS: APPEARANCE,URINE SLIGHTLY CLOUDY (CLEAR); BACTERIA,URINE MANY (NS); COLOR,URINE YELLOW (YELLOW); RBC,URINE 0-5 (0-5); SQUAMOUS EPITHELIAL CELLS,UR FEW (NS,R,O)
[2023-06-14] MEDS ORDERED: Sodium Chloride 0.9% 1,000 ML IV SCH (13:30)
== END 2023-06-13 18:00 | disposition home or self-care (01) ==
LOC: FB.ED 14:09
DX: E86.0 Dehydration (principal); N17.9 Acute kidney failure, unspecified; N39.0 Urinary tract infection, site not specified; N18.9 Chronic kidney disease, unspecified; D63.1 Anemia in chronic kidney disease; I48.91 Unspecified atrial fibrillation; F17.210 Nicotine dependence, cigarettes, uncomplicated; E11.40 Type 2 diabetes mellitus with diabetic neuropathy, unspecified; E66.9 Obesity, unspecified; Z86.73 Personal history of transient ischemic attack (TIA), and cerebral infarction without residual deficits; Z79.01 Long term (current) use of anticoagulants; Z79.899 Other long term (current) drug therapy; Z88.1 Allergy status to other antibiotic agents; Z88.0 Allergy status to penicillin; Z88.2 Allergy status to sulfonamides; Z88.8 Allergy status to other drugs, medicaments and biological substances
CPT/HCPCS: 0240U; 36415; 70450; 71045; 72100; 80053; 81001; 84484; 85025; 85610; 87086; 87088; 87186; 93005; 93010; 96360; 99284; 99285; J7030

== ENCOUNTER 2023-11-06 14:26 | Emergency (ER) | payer MEDICARE ==
[2023-11-06 14:46] VITALS: BP 113/63; PULSE 76
[2023-11-06 15:12] LABS: BASOPHILS ABSOLUTE AUTO 0.1 x10-3/uL (0.0-0.3); BASOPHILS PERCENT AUTO 0.6 % (0.3-3.8); EOSINOPHILS ABSOLUTE AUTO 0.3 x10-3/uL (0.0-0.6); HEMATOCRIT 30.9 % (38.3-50.1); HEMOGLOBIN 9.8 g/dL (12.9-17.7); LYMPHOCYTES ABSOLUTE AUTO 2.4 x10-3/uL (0.5-4.5); LYMPHOCYTES PERCENT AUTO 31.2 % (15.8-45.3); MEAN CORPUSCULAR HEMOGLOBIN 29.9 pg (27.0-33.3); MEAN CORPUSCULAR HGB CONC 31.8 g/dL (28.7-35.3); MEAN CORPUSCULAR VOLUME 93.8 fL (80.8-98.7); MEAN PLATELET VOLUME 8.8 fL (6.7-11.0); MONOCYTES ABSOLUTE AUTO 0.7 x10-3/uL (0.0-1.2); MONOCYTES PERCENT AUTO 8.4 % (5.5-15.2); NEUTROPHILS ABSOLUTE AUTO 4.4 x10-3/uL (1.7-6.9); NEUTROPHILS PERCENT AUTO 55.8 % (40.3-71.8); PLATELET COUNT,PLT 167 x10(3)uL (117-477); RED BLOOD CELL COUNT 3.29 x10(6)uL (3.90-5.90); RED CELL DISTRIBUTION WIDTH 14.3 % (12.4-15.0); WHITE BLOOD CELL COUNT,WBC 7.8 x10-3/uL (3.2-10.1)
[2023-11-06] MEDS: HYDROmorphone 2 MG/ML SDV IVPUSH ONE (15:17)
[2023-11-06 15:23] LABS: A/G RATIO 0.8; ALANINE AMINOTRANSFERASE,ALT 21 U/L (12-36); ALBUMIN 3.4 g/dL (3.2-4.6); ALKALINE PHOSPHATASE 92 IU/L (56-112); ASPARTATE AMNIOTRANSFERASE,AST 24 IU/L (5-25); BILIRUBIN TOTAL 0.3 mg/dL (0.1-1.3); BLOOD UREA NITROGEN,BUN 39 mg/dL (7-18); BUN/CREATININE RATIO 17.7 (9-20); CALCIUM 9.8 mg/dL (8.6-10.2); CARBON DIOXIDE,CO2 27 mmol/L (21-32); CHLORIDE,CL 104 mmol/L (100-110); EST CRCL DRUG DOSING (CG) 25.81 mL/min; ESTIMATED GFR 29 mL/min (>60); GLUCOSE RANDOM 92 mg/dL (80-116); POTASSIUM,K 5.6 mmol/L (3.5-5.3); PROTEIN TOTAL,TP 7.8 g/dL (6.0-8.0); SODIUM,NA 139 mmol/L (135-145)
[2023-11-06 15:24] LABS: CREATININE 2.2 mg/dL (0.70-1.30)
[2023-11-06] MEDS: Lidocaine 4% 1 each Patch TOP ONE (16:51)
== END 2023-11-06 17:13 | disposition home or self-care (01) ==
LOC: FB.ED 14:26
DX: R10.31 Right lower quadrant pain (principal); E66.9 Obesity, unspecified; E11.9 Type 2 diabetes mellitus without complications; E03.9 Hypothyroidism, unspecified; F17.210 Nicotine dependence, cigarettes, uncomplicated; Z88.0 Allergy status to penicillin; Z88.1 Allergy status to other antibiotic agents; Z88.2 Allergy status to sulfonamides; Z88.8 Allergy status to other drugs, medicaments and biological substances; Z79.84 Long term (current) use of oral hypoglycemic drugs; Z79.01 Long term (current) use of anticoagulants; Z79.890 Hormone replacement therapy; Z79.899 Other long term (current) drug therapy; Z90.49 Acquired absence of other specified parts of digestive tract; Z68.28 Body mass index [BMI] 28.0-28.9, adult
CPT/HCPCS: 74176; 80053; 85025; 96374; 99284; J1170

== ENCOUNTER 2023-12-10 08:13 | Emergency (ER) | payer MEDICARE ==
[2023-12-10 08:23] VITALS: PULSE 67
[2023-12-10] MEDS: Tetracaine HCl/PF 0.5% 4 ML Bottle EYELF ONE (09:15)
[2023-12-10] MEDS: Distilled Water Ophth Irrig Soln 120 ML Bottle EYELF ONE (09:15)
[2023-12-10] MEDS: Erythromycin Base 0.5% Ophth Oint 3.5 GM Tube EYELF ONE (09:37)
[2023-12-10 09:53] VITALS: BP 122/64
== END 2023-12-10 09:42 | disposition home or self-care (01) ==
LOC: FB.ED 08:13
DX: S05.02XA Injury of conjunctiva and corneal abrasion without foreign body, left eye, initial encounter (principal); I48.91 Unspecified atrial fibrillation; E11.40 Type 2 diabetes mellitus with diabetic neuropathy, unspecified; E03.9 Hypothyroidism, unspecified; E66.9 Obesity, unspecified; F17.210 Nicotine dependence, cigarettes, uncomplicated; Z90.49 Acquired absence of other specified parts of digestive tract; Z68.28 Body mass index [BMI] 28.0-28.9, adult; Z79.01 Long term (current) use of anticoagulants; Z79.899 Other long term (current) drug therapy; Z79.890 Hormone replacement therapy; Z79.84 Long term (current) use of oral hypoglycemic drugs; Z88.0 Allergy status to penicillin; Z88.1 Allergy status to other antibiotic agents; Z88.2 Allergy status to sulfonamides; X58.XXXA Exposure to other specified factors, initial encounter
CPT/HCPCS: 99283; A9270-GY

== ENCOUNTER 2024-02-27 13:42 | Emergency (ER) | payer MEDICARE ==
[2024-02-27] MEDS: Sodium Zirconium Cyclosilicate 10 GM Packet PO SCH (14:00)
[2024-02-27] MEDS ORDERED: Sodium Chloride 0.9% 10 ML Syringe FLUSH PRN (14:05)
[2024-02-27] MEDS ORDERED: Sodium Chloride 0.9% 1,000 ML IV SCH ×2 (14:15→18:30)
[2024-02-27] MEDS: Sodium Chloride 0.9% 500 ML IV ONE ×3 (14:35→20:34)
[2024-02-27] MEDS ORDERED: Sodium Chloride 0.9% 500 ML IV SCH (14:45)
[2024-02-27 15:32] LABS: BLOOD UREA NITROGEN,BUN 68 mg/dL (7-18); BUN/CREATININE RATIO 20.6 (9-20); CALCIUM 10.5 mg/dL (8.6-10.2); CARBON DIOXIDE,CO2 23 mmol/L (21-32); CHLORIDE,CL 105 mmol/L (100-110); ESTIMATED GFR 18 mL/min (>60); GLUCOSE RANDOM 99 mg/dL (80-116); SODIUM,NA 135 mmol/L (135-145)
[2024-02-27 15:43] LABS: CREATININE 3.3 mg/dL (0.70-1.30)
[2024-02-27] MEDS: Sodium Chloride 0.9% 1,000 ML IV SCH (16:26)
[2024-02-27] MEDS: Albuterol/Ipratropium 3.0-0.5 MG/3 ML Neb Soln NEB ONE (16:26)
[2024-02-27 18:35] LABS: BILIRUBIN,URINE NEGATIVE (NEGATIVE); GLUCOSE,URINE NORMAL (NORMAL); KETONES,URINE NEGATIVE (NEGATIVE); LEUKOCYTE ESTERASE,URINE LARGE (NEGATIVE); NITRITE,URINE NEGATIVE (NEGATIVE); OCCULT BLOOD,URINE NEGATIVE (NEGATIVE); PROTEIN,URINE NEGATIVE (NEGATIVE); UROBILINOGEN,URINE NORMAL (NEGATIVE)
[2024-02-27 18:38] LABS: APPEARANCE,URINE SLIGHTLY CLOUDY (CLEAR); BACTERIA,URINE MODERATE (NS); COLOR,URINE YELLOW (YELLOW); RBC,URINE 0-5 (0-5); SQUAMOUS EPITHELIAL CELLS,UR FEW (NS,R,O)
[2024-02-27 18:45] LABS: BLOOD UREA NITROGEN,BUN 67 mg/dL (7-18); BUN/CREATININE RATIO 20.9 (9-20); CARBON DIOXIDE,CO2 23 mmol/L (21-32); CHLORIDE,CL 105 mmol/L (100-110); ESTIMATED GFR 18 mL/min (>60); GLUCOSE RANDOM 87 mg/dL (80-116); INR 3.18 (1.00-1.24); POTASSIUM,K 5.7 mmol/L (3.5-5.3); PROTHROMBIN TIME 30.1 sec (9.0-11.1); SODIUM,NA 136 mmol/L (135-145)
[2024-02-27 18:47] LABS: CREATININE 3.2 mg/dL (0.70-1.30)
[2024-02-27] MEDS: Sodium Bicarbonate 8.4% 50 MEQ/50 ML Syringe IVPUSH ONE (20:37)
[2024-02-27 21:41] LABS: BLOOD UREA NITROGEN,BUN 68 mg/dL (7-18); BUN/CREATININE RATIO 22.7 (9-20); CALCIUM 9.7 mg/dL (8.6-10.2); CARBON DIOXIDE,CO2 23 mmol/L (21-32); CHLORIDE,CL 105 mmol/L (100-110); ESTIMATED GFR 20 mL/min (>60); GLUCOSE RANDOM 90 mg/dL (80-116); POTASSIUM,K 5.6 mmol/L (3.5-5.3); SODIUM,NA 137 mmol/L (135-145)
[2024-02-27 22:41] VITALS: PULSE 76
[2024-02-27 22:50] VITALS: BP 133/64
== END 2024-02-27 22:31 | disposition home or self-care (01) ==
LOC: FB.ED 13:42
DX: E86.0 Dehydration (principal); E87.5 Hyperkalemia; E83.52 Hypercalcemia; N17.9 Acute kidney failure, unspecified; N18.4 Chronic kidney disease, stage 4 (severe); I48.91 Unspecified atrial fibrillation; E11.22 Type 2 diabetes mellitus with diabetic chronic kidney disease; E11.40 Type 2 diabetes mellitus with diabetic neuropathy, unspecified; E03.9 Hypothyroidism, unspecified; E66.9 Obesity, unspecified; Z95.5 Presence of coronary angioplasty implant and graft; Z79.01 Long term (current) use of anticoagulants; Z79.891 Long term (current) use of opiate analgesic; Z79.899 Other long term (current) drug therapy; Z79.890 Hormone replacement therapy; Z79.84 Long term (current) use of oral hypoglycemic drugs; Z88.0 Allergy status to penicillin; Z88.1 Allergy status to other antibiotic agents; Z88.2 Allergy status to sulfonamides; Z88.8 Allergy status to other drugs, medicaments and biological substances
CPT/HCPCS: 36415; 51798; 80048; 81001; 82550; 83605; 84484; 85610; 87086; 96361; 96374; 99285; A9270; J7030; J7040; 87088; 87186; J7620

== ENCOUNTER 2024-10-15 15:20 | Emergency (ER) | payer MEDICARE ==
[2024-10-15 15:47] LABS: BLOOD UREA NITROGEN,BUN 34 mg/dL (7-18); BUN/CREATININE RATIO 12.1 (9-20); CALCIUM 9.3 mg/dL (8.6-10.2); CARBON DIOXIDE,CO2 24 mmol/L (21-32); CHLORIDE,CL 109 mmol/L (100-110); ESTIMATED GFR 22 mL/min (>60); GLUCOSE RANDOM 102 mg/dL (80-116); POTASSIUM,K 5.9 mmol/L (3.5-5.3); SODIUM,NA 139 mmol/L (135-145)
[2024-10-15 15:49] LABS: CREATININE 2.8 mg/dL (0.70-1.30)
[2024-10-15] MEDS ORDERED: 50% Dextrose in Water 50 ML Syringe IVPUSH PRN (15:51)
[2024-10-15] MEDS ORDERED: Glucagon,Human Recombinant 1 MG Vial IM PRN (15:51)
[2024-10-15] MEDS: 50% Dextrose in Water 50 ML Syringe IVPUSH ONE (16:00)
[2024-10-15] MEDS: Insulin Regular, Human 100 Units/ML 10 ML Vial IV ONE (16:05)
[2024-10-15] MEDS: Albuterol 0.083% 2.5 MG/3 ML Neb Soln NEB ONE (16:06)
[2024-10-15] MEDS: Sodium Bicarbonate 8.4% 50 MEQ/50 ML Syringe IVPUSH ONE (16:11)
[2024-10-15] MEDS: Sodium Chloride 0.9% 1,000 ML IV SCH (16:17)
[2024-10-15 17:34] LABS: BLOOD UREA NITROGEN,BUN 34 mg/dL (7-18); BUN/CREATININE RATIO 12.6 (9-20); CALCIUM 8.8 mg/dL (8.6-10.2); CARBON DIOXIDE,CO2 23 mmol/L (21-32); CHLORIDE,CL 110 mmol/L (100-110); EST CRCL DRUG DOSING (CG) 21.69 mL/min; ESTIMATED GFR 23 mL/min (>60); GLUCOSE RANDOM 69 mg/dL (80-116); POTASSIUM,K 5.1 mmol/L (3.5-5.3); SODIUM,NA 141 mmol/L (135-145)
[2024-10-15 17:35] LABS: CREATININE 2.7 mg/dL (0.70-1.30)
[2024-10-15 18:18] VITALS: BP 137/59; PULSE 84
== END 2024-10-15 18:00 | disposition home or self-care (01) ==
LOC: FB.ED 15:20
DX: E87.6 Hypokalemia (principal); N18.9 Chronic kidney disease, unspecified; J44.9 Chronic obstructive pulmonary disease, unspecified; E11.22 Type 2 diabetes mellitus with diabetic chronic kidney disease; E03.9 Hypothyroidism, unspecified; E66.9 Obesity, unspecified; F17.200 Nicotine dependence, unspecified, uncomplicated; Z79.84 Long term (current) use of oral hypoglycemic drugs; Z79.01 Long term (current) use of anticoagulants; Z79.890 Hormone replacement therapy; Z79.899 Other long term (current) drug therapy; Z88.2 Allergy status to sulfonamides; Z88.0 Allergy status to penicillin; Z88.1 Allergy status to other antibiotic agents; Z88.8 Allergy status to other drugs, medicaments and biological substances; Z90.49 Acquired absence of other specified parts of digestive tract
CPT/HCPCS: 36415; 80048; 82947; 93005; 96361; 96374; 96375; 99285; A9270; J7030

== ENCOUNTER 2025-03-14 21:32 | Emergency (ER) | payer MEDICARE ==
[2025-03-14] MEDS ORDERED: Sodium Chloride 0.9% 10 ML Syringe FLUSH PRN (21:50)
[2025-03-14 22:03] LABS: BASOPHILS ABSOLUTE AUTO 0.0 x10-3/uL (0.0-0.3); BASOPHILS PERCENT AUTO 0.8 % (0.3-3.8); EOSINOPHILS ABSOLUTE AUTO 0.3 x10-3/uL (0.0-0.6); EOSINOPHILS PERCENT AUTO 4.7 % (0.1-6.8); LYMPHOCYTES ABSOLUTE AUTO 1.6 x10-3/uL (0.5-4.5); LYMPHOCYTES PERCENT AUTO 25.0 % (15.8-45.3); MEAN PLATELET VOLUME 9.2 fL (6.7-11.0); MONOCYTES ABSOLUTE AUTO 0.7 x10-3/uL (0.0-1.2); MONOCYTES PERCENT AUTO 11.9 % (5.5-15.2); NEUTROPHILS ABSOLUTE AUTO 3.6 x10-3/uL (1.7-6.9); NEUTROPHILS PERCENT AUTO 57.6 % (40.3-71.8); PLATELET COUNT,PLT 137 x10(3)uL (117-477); RED BLOOD CELL COUNT 3.52 x10(6)uL (3.90-5.90); RED CELL DISTRIBUTION WIDTH 14.4 % (12.4-15.0); WHITE BLOOD CELL COUNT,WBC 6.2 x10-3/uL (3.2-10.1)
[2025-03-14 22:15] LABS: A/G RATIO 0.7; ALANINE AMINOTRANSFERASE,ALT 39 U/L (12-36); ASPARTATE AMNIOTRANSFERASE,AST 49 IU/L (5-25); BILIRUBIN TOTAL 0.5 mg/dL (0.1-1.3); BLOOD UREA NITROGEN,BUN 32 mg/dL (7-18); CARBON DIOXIDE,CO2 29 mmol/L (21-32); CHLORIDE,CL 106 mmol/L (100-110); EST CRCL DRUG DOSING (CG) 22.50 mL/min; ESTIMATED GFR 26 mL/min (>60); GLUCOSE RANDOM 133 mg/dL (80-116); POTASSIUM,K 4.6 mmol/L (3.5-5.3); PROTEIN TOTAL,TP 7.3 g/dL (6.0-8.0); SODIUM,NA 140 mmol/L (135-145)
[2025-03-14 22:16] LABS: CREATININE 2.4 mg/dL (0.70-1.30)
[2025-03-14 22:24] LABS: PRO B-TYPE NATRIUR PEPT,BNPPRO 1099.0 pg/mL (<=450)
[2025-03-14 22:59] VITALS: BP 137/69; PULSE 71
== END 2025-03-15 00:10 | disposition home or self-care (01) ==
LOC: FB.ED 21:32
DX: R07.89 Other chest pain (principal); I48.91 Unspecified atrial fibrillation; E11.40 Type 2 diabetes mellitus with diabetic neuropathy, unspecified; E03.9 Hypothyroidism, unspecified; E66.9 Obesity, unspecified; Z88.0 Allergy status to penicillin; Z88.8 Allergy status to other drugs, medicaments and biological substances; Z79.890 Hormone replacement therapy; Z79.899 Other long term (current) drug therapy; Z90.49 Acquired absence of other specified parts of digestive tract
CPT/HCPCS: 36415; 71045; 80053; 83880; 84484; 85025; 93005; 99285